=== PATIENT | male | born 1955 | race Caucasian/White ===

== ENCOUNTER → 2016-08-23 | Outpatient (CLI) | payer BC ==
[~2016-08-23] MED LIST: ALBU17AE23 IH; CHOL400T24 PO; RT-ALBUTEROL SULF 2.5 MG/3 ML PRE-MIX VIAL IH ONE; RT-ALBUTEROL SULF 2.5 MG/3 ML PRE-MIX VIAL ONE
== END ==
LOC: RT 15:15
PROVIDERS: ATTEND Nurse Practitioner Family
DX: R06.00 Dyspnea, unspecified (principal)
CPT/HCPCS: 94060; 94640; 94726; 94729

== ENCOUNTER 2017-02-03 05:37 | Outpatient (CLI) | payer BC ==
[~2017-02-03] VITALS: Ht 175.3 cm; Wt 90.7 kg
[~2017-02-03 05:37] MED LIST changes: -RT-ALBUTEROL SULF 2.5 MG/3 ML PRE-MIX VIAL IH ONE; -RT-ALBUTEROL SULF 2.5 MG/3 ML PRE-MIX VIAL ONE
[2017-02-03] MEDS ORDERED: OMEP20TA7 PO (15:45)
[2017-02-03] MEDS ORDERED: MONT10TA24 PO (15:45)
[2017-02-03] MEDS ORDERED: RT-ALBUINH IH (15:45)
[2017-02-03] MEDS ORDERED: PRAV10TA PO (15:45)
== END 2017-02-03 15:47 ==
LOC: PREOP 05:37
PROVIDERS: ATTEND Surgery
DX: Z01.818 Encounter for other preprocedural examination (principal); K57.92 Diverticulitis of intestine, part unspecified, without perforation or abscess without bleeding

== ENCOUNTER 2017-02-10 07:54 | Day surgery (SDC) | payer BC ==
[~2017-02-10] VITALS: Ht 175.3 cm; Wt 90.7 kg
[~2017-02-10 07:54] MED LIST changes: +MONT10TA24 PO; +OMEP20TA7 PO; +PRAV10TA PO; +RT-ALBUINH IH
--- OUTSIDE RECORDS SUMMARY | 2017-02-10 08:06 | XMS REPORT | Continuity of Care Document ---
Author Author [facility] Organization [facility] Address Unknown Phone Unavailable Allergies Active Description Code Type Severity Reaction Onset Reported/Identified Relationship to Patient Clinical Status Yes No Known Drug Allergies [id number] Drug Allergy Unknown N/ A 01/02/2011 Medications Problems Date Dx Coded Attending Type Code Diagnosis Diagnosed By 01/02/2011 Ot 886.0 AMPUTATION FINGER 01/02/2011 Ot 959.5 FINGER INJURY NOS 01/02/2011 Ot E000.8 OTHER EXTERNAL CAUSE STATUS 01/02/2011 Ot E849.0 ACCIDENT IN HOME 01/02/2011 Ot E918 CAUGHT BETWEEN OBJECTS 06/07/2014 Ot 493.90 08/21/2014 FREDERICK DEWITT DO Ot 493.90 08/21/2014 FREDERICK DEWITT DO Ot 518.0 08/21/2014 FREDERICK DEWITT DO Ot 786.09 08/23/2014 FREDERICK DEWITT DO Ot 493.90 09/11/2014 Ot 724.2 09/11/2014 Ot 786.50 09/11/2014 Ot 553.1 09/11/2014 Ot V72.63 09/11/2014 Ot V74.8 09/11/2014 Ot 553.1 09/11/2014 Ot 553.21 09/11/2014 Ot 493.90 09/11/2014 FREDERICK DEWITT DO Ot 493.90 09/11/2014 FREDERICK DEWITT DO Ot 493.90 09/11/2014 FREDERICK DEWITT DO Ot 518.0 09/11/2014 FREDERICK DEWITT DO Ot 786.09 07/21/2015 Ot 553.1 UMBILICAL HERNIA 07/21/2015 Ot V72.63 PRE-PROCEDURAL LABORATORY EXAMINATION 07/21/2015 Ot V74.8 SCREEN-BACTERIAL DIS NEC 07/21/2015 Ot 553.1 UMBILICAL HERNIA 07/21/2015 Ot 553.21 INCISIONAL HERNIA 07/21/2015 Ot 493.90 ASTHMA, UNSPECIFIED 07/21/2015 FREDERICK DEWITT DO Ot 493.90 ASTHMA, UNSPECIFIED 07/21/2015 FREDERICK DEWITT DO Ot 493.90 ASTHMA, UNSPECIFIED 07/21/2015 FREDERICK DEWITT DO Ot 518.0 PULMONARY COLLAPSE 07/21/2015 FREDERICK DEWITT DO Ot 786.09 RESPIRATORY ABNORM NEC 07/22/2015 FYA FRANCE APRN Ot J40 BRONCHITIS, NOT SPECIFIED ACUTE OR CH 07/22/2015 FAY FRANCE APRN Ot J98.11 ATELECTASIS 07/22/2015 FAY FRANCE APRN Ot R06.00 DYSPNEA, UNSPECIFIED 08/06/2015 FAY FRANCE APRN Ot J40 BRONCHITIS, NOT SPECIFIED ACUTE OR CH 08/06/2015 FAY FRANCE APRN Ot J98.11 ATELECTASIS 08/06/2015 FAY FRANCE APRN Ot R06.00 DYSPNEA, UNSPECIFIED 08/23/2016 Ot 493.90 ASTHMA, UNSPECIFIED 08/23/2016 FREDERICK DEWITT DO Ot 493.90 ASTHMA, UNSPECIFIED 08/23/2016 FREDERICK DEWITT DO Ot 493.90 ASTHMA, UNSPECIFIED 08/23/2016 FREDERICK DEWITT DO Ot 518.0 PULMONARY COLLAPSE 08/23/2016 FREDERICK DEWITT DO Ot 786.09 RESPIRATORY ABNORM NEC 08/23/2016 FAY FRANCE APRN Ot J40 BRONCHITIS, NOT SPECIFIED ACUTE OR CH 08/23/2016 FAY FRANCE APRN Ot J98.11 ATELECTASIS 08/23/2016 FAY FRANCE APRN Ot R06.00 DYSPNEA, UNSPECIFIED 09/01/2016 FAY FRANCE APRN Ot R06.00 DYSPNEA, UNSPECIFIED 09/03/2016 FAY FRANCE APRN Ot R06.00 DYSPNEA, UNSPECIFIED 09/08/2016 FAY FRANCE APRN Ot R06.00 DYSPNEA, UNSPECIFIED 01/14/2017 MILAGRO MASTERSON DO Ot K40.20 BI INGUINAL HERNIA, W/O OBST OR GANGRENE 01/14/2017 MILAGRO MASTERSON DO Ot K57.30 DVRTCLOS OF LG INT W/O PERFORATION OR AB 01/14/2017 MILAGRO MASTERSON DO Ot K76.0 FATTY (CHANGE OF) LIVER, NOT ELSEWHERE C 01/14/2017 MILAGRO MASTERSON DO Ot K80.20 CALCULUS OF GALLBLADDER W/O CHOLECYSTITI 01/14/2017 MILAGRO MASTERSON DO Ot N40.0 BENIGN PROSTATIC HYPERPLASIA WITHOUT LOW 01/31/2017 MILAGRO MASTERSON DO Ot K40.20 BI INGUINAL HERNIA, W/O OBST OR GANGRENE 01/31/2017 MILAGRO MASTERSON DO Ot K57.30 DVRTCLOS OF LG INT W/O PERFORATION OR AB 01/31/2017 MILAGRO MASTERSON DO Ot K76.0 FATTY (CHANGE OF) LIVER, NOT ELSEWHERE C 01/31/2017 MILAGRO MASTERSON DO Ot K80.20 CALCULUS OF GALLBLADDER W/O CHOLECYSTITI 01/31/2017 MILAGRO MASTERSON DO Ot N40.0 BENIGN PROSTATIC HYPERPLASIA WITHOUT LOW 02/04/2017 JOE GONZALEZ, IRASEMA Alexander Ot K57.92 DVTRCLI OF INTEST, PART UNSP, W/O PERF O 02/04/2017 JOE GONZALEZ, IRASEMA Alexander Ot Z01.818 ENCOUNTER FOR OTHER PREPROCEDURAL EXAMIN Procedures Results Encounters ACCT No. Visit Date/Time Discharge Status Pt. Type Provider Facility Loc./Unit Complaint [id number] 02/03/2017 05:37:00 2016 15:47:00 DIS Outpatient IRASEMA DIAZ MD [facility] PREOP COLONOSCOPY [id number] 01/13/2017 11:52:00 2016 23:59:59 CLS Outpatient MILAGRO MASTERSON DO [facility] RAD LLQ ABDOMINAL PAIN [id number] 08/23/2016 15:15:00 2016 23:59:59 CLS Outpatient FAY FRANCE APRN [facility] RT DYSPNEA R06.00 [id number] 07/21/2015 10:14:00 2015 23:59:59 CLS Outpatient FAY FRANCE APRN [facility] RAD BRONCHITIS,DYSPNEA,ASTHMA [id number] 07/30/2014 13:31:00 2014 23:59:59 CLS Outpatient FREDERICK DEWITT DO [facility] RAD DYSPNEA,ATELECTASIS,ASTHMA [id number] 07/18/2014 12:35:00 2014 23:59:59 CLS Outpatient FREDERICK DEWITT DO [facility] RAD ASTHMA [id number] 02/23/2017 08:00:00 PEN Preadmit JOE [facility]ALE[facility] G[facility]ONES, BILATERAL INGUINAL HERNIAS [id number] 02/10/2017 10:15:00 PEN Preadmit JOE GONZALEZ, IRASEMA Alexander [facility] ENDO DIVERTICULITIS/ABNORMAL CT [id number] 06/07/2014 16:35:00 Document Registration [id number] 01/19/2011 05:37:00 Document Registration [id number] 01/14/2011 14:06:00 Document Registration [id number] 01/02/2011 12:23:00 Document Registration [id number] 04/11/2009 08:13:00 Document Registration
[2017-02-10 08:10] VITALS: BP 106/76
[2017-02-10] MEDS ORDERED: NS IV 500 ML 500 ML IV PRN (08:10)
--- NOTE | 2017-02-10 08:40 | Conscious Sedation/ASA ---
Conscious Sedation Pre-Proced Time Reviewed: 08:40 ASA Class: 2 Airway Mallampati Classification: ([place] appropriate class) I. II. III, IV Lungs Heart ASA score ASA 1: a normal healthy patient ASA 2: a patient with a mild systemic disease (mid diabetes, controlled hypertension, obesity ASA 3: a patient with a severe systemic disease that limits activity (angina , COPD, prior Myocardial infarction) ASA 4: a patient with an incapacitating disease that is a constant threat to life (CHF, renal failure) ASA 5: a moribund patient not expected to survive 24 hrs. (ruptured aneurysm) ASA 6: a declared brain patient whose organs are being harvested. For emergent operations, add the letter E after the classification Grade 1 Sedation Plan: Discussed options with patient/fam Note The patient is an appropriate candidate to undergo the planned procedure, sedation, and anesthesia. The patient immediately re-assessed prior to indication. IRASEMA DIAZ MD Feb 10, 2017 8:40 am
[2017-02-10 08:45] VITALS: BP 99/62
[2017-02-10] MEDS ORDERED: MIDAZOLAM 2 MG/2 ML (VERSED) VIAL ONE ×3 (09:01)
[2017-02-10] MEDS ORDERED: fentaNYL INJECTION 100 MCG/2 ML AMP ONE (09:01)
[2017-02-10] MEDS: MIDAZOLAM 2 MG/2 ML (VERSED) VIAL IVP PRN ×2 (09:12→09:15)
[2017-02-10] MEDS: fentaNYL INJECTION 100 MCG/2 ML AMP IVP PRN ×2 (09:13→09:16)
[2017-02-10 09:20] VITALS: BP 127/69
--- NOTE | 2017-02-10 09:33 | Endo Procedure Record ---
Endo Procedure Report Date of Procedure Feb 10, 2017 Surgeon (s) IRASEMA DIAZ MD Post Procedure/Op Diagnosis very few sigmoid diverticula. Procedure Performed colonoscopy to cecum Description of Procedure Anesthesia Type: Conscious Sedation Specimen(s) collected/removed none Description of the Procedure Indication for procedure: This gentleman came in for colonoscopy to evaluate left lower quadrant pain with the finding of diverticulosis on CT scan. Informed consent was obtained after reviewing the procedure in detail. Description of procedure: He was placed in left lateral decubitus position and his vital signs were monitored. Conscious sedation was achieved using Versed and fentanyl. Digital rectal examination was unremarkable. The colonoscope was then introduced in the rectum and advanced all the way up to the cecum. The scope was then withdrawn slowly and the mucosa examined in a systematic fashion. The quality of bowel preparation was excellent Findings: Very few sigmoid diverticula without any inflammation No polyps were found He tolerated the procedure well and was taken back to the nursing area in a stable condition. Impression: Left lower quadrant pain.complicated sigmoid diverticulosis. Note: This gentleman has symptomatic gallstones and small inguinal hernia. He is scheduled to undergo repair using minimally invasive technique later this month. Copies To: MILAGRO MASTERSON XAVIER M MD Feb 10, 2017 9:33 am
--- NOTE | 2017-02-10 09:34 | Discharge Inst-Simple/Standard ---
Discharge Inst-Standard Discharge Medications New, Converted or Re-Newed RX: Other Patient Instructions/Follow Up Plan of Care/Instructions/FU: to return on February 23 for surgery Activity as Tolerated: Yes Discharge Diet: No Restrictions IRASEMA DIAZ MD Feb 10, 2017 9:34 am
[2017-02-10 09:50] VITALS: BP 106/72
[2017-02-10 10:15] VITALS: BP 126/94
[2017-02-10 10:21] VITALS: BP 126/94
== END 2017-02-10 10:24 | disposition home or self-care (01) ==
LOC: ENDO 07:54
PROVIDERS: ATTEND Surgery
DX: K57.30 Diverticulosis of large intestine without perforation or abscess without bleeding (principal); J45.909 Unspecified asthma, uncomplicated; Z79.899 Other long term (current) drug therapy

== ENCOUNTER 2017-02-10 08:20 | Outpatient (CLI) | payer BC ==
[~2017-02-10] VITALS: Ht 175.3 cm; Wt 90.7 kg
== END 2017-02-10 09:00 | disposition home or self-care (01) ==
LOC: PREOP 08:20
PROVIDERS: ATTEND Surgery
DX: Z01.818 Encounter for other preprocedural examination (principal); Z11.2 Encounter for screening for other bacterial diseases; K80.20 Calculus of gallbladder without cholecystitis without obstruction; K40.20 Bilateral inguinal hernia, without obstruction or gangrene, not specified as recurrent
CPT/HCPCS: 87081

== ENCOUNTER 2017-02-23 06:15 | Day surgery (SDC) | payer BC ==
[~2017-02-23] VITALS: Ht 175.3 cm; Wt 90.7 kg
[2017-02-23 06:15] VITALS: BP 127/83
--- OUTSIDE RECORDS SUMMARY | 2017-02-23 06:18 | XMS REPORT | Continuity of Care Document ---
Author Author [facility] Organization [facility] Address Unknown Phone Unavailable Allergies Active Description Code Type Severity Reaction Onset Reported/Identified Relationship to Patient Clinical Status Yes No Known Drug Allergies [id number] Drug Allergy Unknown N/A 01/02/2011 Medications There is no data. Problems Date Dx Coded Attending Type Code [...] Ot 553.1 UMBILICAL HERNIA 07/21/2015 Ot V72.63 PRE- PROCEDURAL LABORATORY EXAMINATION 07/21/2015 Ot V74.8 SCREEN- BACTERIAL DIS NEC 07/21/2015 Ot 553.1 UMBILICAL HERNIA 07/21/2015 Ot 553.21 INCISIONAL HERNIA 07/21/2015 Ot 493.90 ASTHMA, UNSPECIFIED 07/21/2015 ESDRAS FREDERICK Alexander Ot 493.90 ASTHMA, UNSPECIFIED 07/21/2015 ESDRAS BOWEN FREDERICK M Ot 493.90 ASTHMA, UNSPECIFIED 07/21/2015 ESDRAS BOWEN FREDERICK Alexander Ot 518.0 PULMONARY COLLAPSE 07/21/2015 ESDRAS BOWEN FREDERICK Benjamin Ot 786.09 RESPIRATORY ABNORM NEC 07/22/2015 FAY FRANCE APRN Ot J40 BRONCHITIS, NOT SPECIFIED ACUTE OR CH 07/22/2015 FAY FRANCE APRN Ot J98.11 ATELECTASIS 07/22/2015 FAY FRANCE APRN Ot R06.00 DYSPNEA, UNSPECIFIED 08/06/2015 FAY FRANCE APRN Ot J40 BRONCHITIS, NOT SPECIFIED ACUTE OR CH 08/06/2015 FAY FRANCE APRN Ot J98.11 ATELECTASIS 08/06/2015 FAY FRANCE APRN Ot R06.00 DYSPNEA, UNSPECIFIED 08/23/2016 Ot 493.90 ASTHMA, UNSPECIFIED 08/23/2016 ESDRAS BOWEN FREDERICK Benjamin Ot 493.90 ASTHMA, UNSPECIFIED 08/23/2016 ESDRAS BOWEN FREDERICK Benjamin Ot 493.90 ASTHMA, UNSPECIFIED 08/23/2016 ESDRAS BOWEN FREDERICK Benjamin Ot 518.0 PULMONARY COLLAPSE 08/23/2016 ESDRAS BOWEN FREDERICK Benjamin Ot 786.09 RESPIRATORY ABNORM NEC 08/23/2016 FAY [...] INTEST, PART UNSP, W/O PERF O 02/04/2017 IRASEMA DIAZ MD Ot Z01.818 ENCOUNTER FOR OTHER PREPROCEDURAL EXAMIN 02/09/2017 IRASEMA DIAZ MD Ot K57.92 DVTRCLI OF INTEST, PART UNSP, W/O PERF O 02/09/2017 IRASEMA DIAZ MD Ot Z01.818 ENCOUNTER FOR OTHER PREPROCEDURAL EXAMIN 02/16/2017 IRASEMA DIAZ MD Ot J45.909 UNSPECIFIED ASTHMA, UNCOMPLICATED 02/16/2017 IRASEMA DIAZ MD Ot K57.30 DVRTCLOS OF LG INT W/O PERFORATION OR AB 02/16/2017 IRASEMA DIAZ MD Ot Z79.899 OTHER [employer]PERINTENDENT (CURRENT) DRUG THERAPY Procedures There is no data. Results Test Result Range Methicillin resistant Staphylococcus aureus (MRSA) screening culture - 08:45 Methicillin resistant Staphylococcus aureus (MRSA) screening culture NEG NRG Encounters ACCT No. Visit Date/Time Discharge Status Pt. Type Provider Facility Loc./Unit Complaint [id number] 02/10/2017 08:20:00 02/10/2017 23:59:59 CLS Outpatient IRASEMA DIAZ MD [facility] PREOP GALLSTONES, BILATERAL INGUINAL HERNIAS [id number] 02/10/2017 07:54:00 02/10/2017 10:24:00 DIS Outpatient IRASEMA DIAZ MD [facility] ENDO DIVERTICULITIS/ ABNORMAL CT [id number] 02/03/2017 05:37:00 02/03/2017 15:47:00 DIS Outpatient IRASEMA DIAZ MD [facility] PREOP COLONOSCOPY [id number] 01/13/2017 11:52:00 01/13/2017 23:59:59 CLS Outpatient MILAGRO MASTERSON DO [facility] RAD LLQ ABDOMINAL PAIN [id number] 08/23/2016 15:15:00 08/23/2016 23:59:59 CLS Outpatient FAY FRANCE APRN [facility] RT DYSPNEA R06.00 [id number] 07/21/2015 10:14:00 07/21/2015 23:59:59 CLS Outpatient FAY FRANCE APRN [facility] RAD BRONCHITIS,DYSPNEA, ASTHMA [id number] 07/30/2014 13:31:00 07/30/2014 23:59:59 CLS Outpatient FREDERICK DEWITT DO [facility] RAD DYSPNEA,ATELECTASIS, ASTHMA [id number] 07/18/2014 12:35:00 07/18/2014 23:59:59 CLS Outpatient FREDERICK DEWITT DO [facility] RAD ASTHMA [id number] 02/23/2017 06:15:00 ACT Outpatient IRASEMA DIAZ MD [facility] SDC GALLSTONES, BILATERAL INGUINAL HERNIAS [id number] 06/07/2014 16:35:00 Document Registration [id number] 01/19/2011 05:37:00 Document Registration [id number] 01/14/2011 14:06:00 Document Registration [id number] 01/02/2011 12:23:00 Document Registration [id number] 04/11/2009 08:13:00 Document Registration
[2017-02-23] MEDS: LACTATED RINGERS 1,000 ML IV PRN ×2 (06:35→08:20)
[2017-02-23] MEDS ORDERED: BUP/EPI 0.5% 1:200,000 (MARCAINE) 10ML VIAL IJ ONE (06:59)
[2017-02-23] MEDS ORDERED: ceFAZolin 2 GM/NS 50 ML IV ONE (07:00)
[2017-02-23] MEDS ORDERED: metroNIDAZOLE 500MG/100ML IVPB 100 ML IV ONE (07:00)
[2017-02-23] MEDS ORDERED: ceFAZolin INJECTION 1,000 MG in NS (IVPB) 50 ML IV ONE (07:00)
[2017-02-23] MEDS ORDERED: ROCURONIUM 50 MG/5 ML (ZEMURON) VIAL IV ONE ×2 (07:19→08:53)
[2017-02-23] MEDS ORDERED: GLYCOPYRROLATE 0.2 MG/ML (ROBINUL) 2 ML VIAL ONE (07:19)
[2017-02-23] MEDS ORDERED: MIDAZOLAM 2 MG/2 ML (VERSED) VIAL ONE (07:19)
[2017-02-23] MEDS ORDERED: LIDOCAINE PF 2% 5 ML (XYLOCAINE) VIAL ONE (07:19)
[2017-02-23] MEDS ORDERED: proPOfol 200 MG/20 ML (DIPRIVAN) VIAL IV ONE (07:19)
[2017-02-23] MEDS ORDERED: fentaNYL INJECTION 250 MCG/5 ML AMP ONE (07:19)
[2017-02-23] MEDS ORDERED: NEOSTIGMINE (BLOXIVERZ ) 1 MG/1ML 10 ML VIAL ONE (07:19)
[2017-02-23] MEDS ORDERED: ONDANSETRON 4 MG/2 ML (SDV) Z0FRAN ONE (07:19)
[2017-02-23] MEDS ORDERED: DEXAMETHASONE 10 MG/ML (DECADRON) 1 ML VIAL ONE (07:19)
[2017-02-23] MEDS ORDERED: SEVOFLURANE (ULTANE) 15 ML INHAL SOLN ONE ×2 (07:19→09:40)
--- NOTE | 2017-02-23 07:38 | Progress Note-Pre Operative ---
Pre-Operative Progress Note H&P Reviewed The H&P was reviewed, patient examined and no changes noted. Date Seen by Provider: Feb 02, 2017 Time Seen by Provider: 15:00 Date H&P Reviewed: Feb 23, 2017 Time H&P Reviewed: 07:37 Pre-Operative Diagnosis: Gallstones. Bilateral, incidental inguinal herniae IRASEMA DIAZ MD Feb 23, 2017 07:38
--- NOTE | 2017-02-23 09:49 | Operative Report ---
Operative Report Date of Procedure/Surgery Feb 23, 2017 Surgeon (s) IRASEMA DIAZ MD [employer] Merchandiser (s): N/A Post-Operative Diagnosis Gallstones only. Normal cholangiogram. No true inguinal hernia Procedure Performed Robotic-assisted cholecystectomy Intraoperative cholangiogram(normal) Description of Procedure Anesthesia Type: General Estimated blood loss (mL): Minimal Specimen(s) collected/removed Gallbladder Description of the Procedure Indication for procedure: Evaluation for abdominal pain included a CT scan revealing gallstones and a dental, asymptomatic bilateral inguinal hernia. He was offered cholecystectomy with cholangiogram using minimally invasive technique, combined with repair of inguinal hernia should they were confirmed on laparoscopy. Informed consent was obtained after reviewing the operative details and complications of wound infection and bile leak Description of procedure: He was placed supine on the operative table and general anesthesia induced using an endotracheal tube. Ancef and Flagyl were administered intravenously as prophylaxis against wound infection. Sequential compression devices were placed around his legs, to minimize the risk of venous thrombosis. A Garza catheter was placed to decompress the bladder during surgery. It was removed at the end of the operation. Robotic-assisted cholecystectomy/cholangiogram: Abdomen is prepared and draped in the usual sterile manner. Due to previous repair of a midline umbilical hernia, I elected to establish pneumoperitoneum using a Veress needle introduced over the left subcostal margin. Intra-abdominal pressure was maintained at 15 mmHg, using carbon dioxide insufflation. A 5 mm trocar was placed and anatomy visualized using the conventional laparoscope. Omentum was adherent to the undersurface of the mesh deeper to the umbilicus. Under direct view, I placed an 8 mm trocar over the left side of the abdomen and took down the adhesions. Subsequently, I was able to place a 12 mm trocar superior to the umbilicus and another 8 mm trocar over the right side of the abdomen; the patient was then turned into reverse Trendelenburg position and the robotic system docked in place. Omentum was adherent to the body of the gallbladder and taken down using cautery. Eventually the fundus was retracted cephalad and infundibulum grasped with Cadiere forceps. Peritoneal overlying Calot's triangle was incised using hook cautery, delineating the cystic duct and artery. Cholangiogram was obtained using taut catheter. It revealed a normal bile duct with no filling defects within it. The contrast flowed freely into the duodenum. The catheter was removed and the cystic duct controlled using ligaclips. Cystic artery was managed in a similar fashion. Cholecystectomy was completed using hook cautery. Minimal spillage of bile happen and therefore the subhepatic space was thoroughly irrigated with saline. Once the gallbladder was placed in an Endo Catch bag, we undocked the robotic system in preparation for positioning for inguinal hernia assessment and the patient. The patient was turned into steep Trendelenburg position and the robotic system docked back in place. Laparoscopic survey was negative for any true inguinal hernia. Therefore the operation was concluded. Once the Endo Catch bag was removed, the fascia over the supraumbilical incision was closed using #1 Vicryl, under direct view, using the Isaiah Bourne device. Skin incisions were closed using 4-0 Vicryl, in a subcuticular fashion. 0.5 percent Marcaine with epinephrine was infiltrated along the incisions, both preemptively and at the conclusion of the operation. He tolerated the procedure well and was taken back to the nursing area in a stable condition Findings of the Procedure See op report Allergies and Home Medications Allergies Coded Allergies: No Known Drug Allergies (Unverified , 01/02/11) Home Medications Albuterol Sulfate 1 Puff Puff, 2 PUFF IH Q4H PRN for WHEEZING, (Reported) 1 PUFF = 90 MCG Montelukast Sodium 10 Mg Tablet, 10 MG PO HS, (Reported) Omeprazole 20 Mg Tablet.dr, 20 MG PO DAILY, (Reported) Pravastatin Sodium 10 Mg Tablet, 10 MG PO HS, (Reported) IRASEMA DIAZ MD Feb 23, 2017 9:49 am
[2017-02-23] MEDS ORDERED: HYDR-3812 PO (09:50)
--- NOTE | 2017-02-23 09:51 | Discharge Inst-Simple/Standard ---
Discharge Inst-Standard Discharge Medications New, Converted or Re-Newed RX: RX on Chart Patient Instructions/Follow Up Plan of Care/Instructions/FU: Band-Aids off in 48 hours. Incentive spirometry Follow-up in 3 weeks. Activity as Tolerated: Yes Discharge Diet: No Restrictions IRASEMA DIAZ MD Feb 23, 2017 9:51 am
[2017-02-23] MEDS ORDERED: morphine INJ 10 MG/ML 1ML (SYR OR VIAL) ONE (10:01)
[2017-02-23] MEDS ORDERED: HYDROmorphone (DILAUDID) 2 MG/ML VIAL ONE (10:01)
[2017-02-23] MEDS ORDERED: fentaNYL INJECTION 100 MCG/2 ML AMP ONE (10:06)
[2017-02-23] MEDS: fentaNYL INJECTION 100 MCG/2 ML AMP IVP PRN ×2 (10:12→10:24)
[2017-02-23] MEDS ORDERED: MEPERIDINE (DEMEROL) INJ 50 MG/ML IVP PRN (10:15)
[2017-02-23] MEDS ORDERED: ONDANSETRON 4 MG/2 ML (SDV) Z0FRAN IVP PRN (10:15)
[2017-02-23 11:00] VITALS: BP 148/86
--- NOTE | 2017-02-23 11:26 | Diagnostic Imaging Report ---
Intraoperative cholangiogram Indication: Abdominal pain. Cholangiogram performed the in surgery during cholecystectomy Fluoroscopy time: 8 seconds Contrast used: HCC Findings: The CBD is normal in caliber. No filling defects seen to suggest a stone. Contrast passage into the duodenum is documented with no evidence of obstruction. Impression: No evidence of CBD stones or obstruction. Dictated by: Dictated on workstation # [id number]
[2017-02-23 11:30] VITALS: BP 143/92
[2017-02-23 12:00] VITALS: BP 140/89
[2017-02-23 14:20] VITALS: BP 140/89
== END 2017-02-23 12:30 | disposition home or self-care (01) ==
LOC: SDC 06:15
PROVIDERS: ATTEND Surgery
DX: K80.20 Calculus of gallbladder without cholecystitis without obstruction (principal); J45.909 Unspecified asthma, uncomplicated; Z79.899 Other long term (current) drug therapy; F17.210 Nicotine dependence, cigarettes, uncomplicated; Z11.2 Encounter for screening for other bacterial diseases

== ENCOUNTER → 2017-08-19 | Outpatient (CLI) | payer BC ==
[~2017-08-19] MED LIST changes: +ACHD5005 PO; +RT-ALBUTEROL SULF 2.5 MG/3 ML PRE-MIX VIAL INH ONE; +RT-ALBUTEROL SULF 2.5 MG/3 ML PRE-MIX VIAL ONE
== END ==
LOC: RT 14:11
PROVIDERS: ATTEND Internal Medicine Critical Care Medicine
DX: R06.00 Dyspnea, unspecified (principal); R06.83 Snoring; G47.9 Sleep disorder, unspecified; E66.9 Obesity, unspecified
CPT/HCPCS: 94060; 94726; 94729

== ENCOUNTER → 2018-03-17 | Outpatient (CLI) | payer BC ==
[~2018-03-17] MED LIST changes: -RT-ALBUTEROL SULF 2.5 MG/3 ML PRE-MIX VIAL INH ONE; -RT-ALBUTEROL SULF 2.5 MG/3 ML PRE-MIX VIAL ONE
== END ==
LOC: CARD 07:58
PROVIDERS: ATTEND Internal Medicine
DX: R00.2 Palpitations (principal); I10 Essential (primary) hypertension
CPT/HCPCS: 93017

== ENCOUNTER 2020-03-30 04:29 | Day surgery (SDC) | payer MEDICARE, OTHER ==
[~2020-03-30] VITALS: Ht 175.3 cm; Wt 92.8 kg
[~2020-03-30 04:29] MED LIST changes: -MONT10TA24 PO; +MONT10TA97 PO
[2020-03-30] MEDS ORDERED: ASPIRIN 81 MG CHEW (CHILDREN'S ASA) ONE (04:45)
[2020-03-30] MEDS ORDERED: morphine INJ 10 MG/ML 1ML (SYR OR VIAL) IVP STA (04:47)
[2020-03-30] MEDS ORDERED: LACTATED RINGERS 1,000 ML IV ONE ×2 (04:52→05:00)
[2020-03-30 04:54] LABS: BASOPHILS # (AUTO) 0.1 10^3/uL (0.0-0.1); BASOPHILS % (AUTO) 1 % (0-10); EOSINOPHILS # (AUTO) 0.1 10^3/uL (0.0-0.3); EOSINOPHILS % (AUTO) 2 % (0-10); HEMATOCRIT 46 % (40-54); HEMOGLOBIN 15.2 g/dL (13.3-17.7); LYMPHOCYTES # (AUTO) 2.4 10^3/uL (1.0-4.0); LYMPHOCYTES % (AUTO) 34 % (12-44); MEAN CORPUSCULAR HEMOGLOBIN 30 pg (25-34); MEAN CORPUSCULAR HGB CONC 33 g/dL (32-36); MEAN CORPUSCULAR VOLUME 90 fL (80-99); MEAN PLATELET VOLUME 10.2 fL (9.0-12.2); MONOCYTES # (AUTO) 0.6 10^3/uL (0.0-1.0); MONOCYTES % (AUTO) 8 % (0-12); NEUTROPHILS # (AUTO) 3.8 10^3/uL (1.8-7.8); NEUTROPHILS % (AUTO) 55 % (42-75); PLATELET COUNT 272 10^3/uL (130-400)
[2020-03-30] MEDS ORDERED: ONDANSETRON 4 MG/2 ML (SDV) Z0FRAN ONE (04:59)
[2020-03-30] MEDS ORDERED: ASPIRIN 81 MG CHEW (CHILDREN'S ASA) PO ONE (05:00)
[2020-03-30 05:07] LABS: ALBUMIN 3.7 GM/DL (3.2-4.5); CHLORIDE 106 MMOL/L (98-107); INR 0.9 (0.8-1.4); POTASSIUM 3.9 MMOL/L (3.6-5.0); PROTHROMBIN TIME PATIENT 12.8 SEC (12.2-14.7)
[2020-03-30] MEDS ORDERED: HEParin 1000 UNIT/ML (10ML VIAL) FOR BOLUS ONE (05:07)
[2020-03-30] MEDS ORDERED: CLOPIDOGREL 300 MG (PLAVIX) TABLET PO ONE ×3 (05:07→06:26)
[2020-03-30 05:08] LABS: SODIUM 139 MMOL/L (135-145)
[2020-03-30 05:09] LABS: CALCIUM 8.3 MG/DL (8.5-10.1)
--- NOTE | 2020-03-30 05:09 | ED Chest Pain ---
General Chief Complaint: Chest Pain Stated Complaint: CHEST PAIN / LEFT ARM NUMBNESS Nursing Triage Note: Pt to ED 3 w c/o chest pain with radiation and numbness to left arm beginning approx 0230 Nursing Sepsis Screen: No Definite Risk Source: patient (CAROLYN SORIANO STUDENT) History of Present Illness Date Seen by Provider: Mar 30, 2020 Time Seen by Provider: 04:35 Initial Comments This is a 64 year old male presenting to the Emergency Department via ambulation for a chief complaint of chest pain that began at 2:30AM. He didn't feel good initially but it progressed. The patient complains of burning left sided chest pain that radiates to the left arm pain and sweating. He denies being short of breath or having nausea. (CAROLYN SORIANO) Allergies and Home Medications Allergies Coded Allergies: No Known Drug Allergies (Unverified , 01/02/11) Home Medications Albuterol Sulfate 1 Puff Puff, 2 PUFF IH Q4H PRN for WHEEZING, (Reported) 1 PUFF = 90 MCG Hydrocodone Bit/Acetaminophen 1 Each Tablet, 1-2 TAB PO 4-6HR PRN for PAIN Prescribed by: IRASEAM DIAZ on 02/23/17 0950 Montelukast Sodium 10 Mg Tablet, 10 MG PO HS, (Reported) Omeprazole 20 Mg Tablet.dr, 20 MG PO DAILY, (Reported) Pravastatin Sodium 10 Mg Tablet, 10 MG PO HS, (Reported) Patient Home Medication List Home Medication List Reviewed: Yes (JAYSON BENNETT MD) Review of Systems Review of Systems Constitutional: diaphoresis EENTM: No Symptoms Reported Respiratory: Shortness of Air Cardiovascular: Chest Pain Gastrointestinal: No Symptoms Reported Genitourinary: No Symptoms Reported Musculoskeletal: no symptoms reported Skin: no symptoms reported Psychiatric/Neurological: No Symptoms Reported Endocrine: Excessive Sweating Hematologic/Lymphatic: No Symptoms Reported (CAROLYN SORIANO STUDENT) Skin: other (Diaphoresis) (JAYSON BENNETT MD) Past Usonvtn-Xyubyh-Bxcczm Hx Past Med/Social Hx: Reviewed and Corrections made (JAYSON BENNETT MD) Patient Social History Recent Infectious Disease Expo: No Recent Hopitalizations: No (CAROLYN SORIANO) Immunizations Up To Date Tetanus Booster (TDap): Unknown PED Vaccines UTD: No Date of Influenza Vaccine: Jan 03, 2017 (CAROLYN SORIANO Fisgo STUDENT) Seasonal Allergies Seasonal Allergies: Yes (CAROLYN SORIANO Fisgo STUDENT) Past Medical History Asthma, COPD Hypertension Reproductive Disorders: No Sexually Transmitted Disease: No Diverticulosis (CAROLYN SORIANO Fisgo STUDENT) Surgeries: Yes Abdominal, Gallbladder Respiratory: Yes Asthma, Pneumonia Cardiac: Yes High Cholesterol, Hypertension Neurological: No Genitourinary: No Gastrointestinal: Yes Diverticulosis, Gall Bladder Disease Endocrine: No Cancer: No Psychosocial: No Integumentary: No (JAYSON BENNETT MD) Physical Exam Vital Signs Vital Signs - First Documented 03/30/20 04:53 O2 Flow Rate 2.00 FiO2 95 (JAYSON BENNETT MD) Vital Signs Capillary Refill : Less Than 3 Seconds (CAROLYN SORIANO [employer] STUDENT) Height, Weight, BMI Height: 5'9.00" Weight: 200lbs. 0.0oz. 90.897487op; 30.00 BMI Method: General Appearance: Moderate Distress Skin: Damp (CAROLYN SORIANO Fisgo STUDENT) General Appearance: WD/WN, Other (Lethargic) HEENT: PERRL/EOMI, Normal ENT Inspection Neck: Normal Inspection Respiratory: Lungs Clear, Normal Breath Sounds, No Accessory Muscle Use, No Respiratory Distress Cardiovascular: No Edema, No Murmur, Bradycardia Gastrointestinal: Non Tender, Soft; No Distended Extremity: Normal Inspection, Non Tender, No Pedal Edema Neurologic/Psychiatric: Alert, Oriented x3, No Motor/Sensory Deficits, Normal Mood/Affect, biomedical technician II-XII Norm as Tested Skin: Normal Color, Warm/Dry (JAYSON BENNETT MD) Progress/Results/Core Measures Results/Orders Lab Results Laboratory Tests Test 03/30/20 04:44 Range/Units White Blood Count 7.0 4.3-11.0 10^3/uL Red Blood Count 5.04 4.30-5.52 10^6/uL Hemoglobin 15.2 13.3-17.7 g/dL Hematocrit 46 40-54 % Mean Corpuscular Volume 90 80-99 fL Mean Corpuscular Hemoglobin 30 25-34 pg Mean Corpuscular Hemoglobin Concent 33 32-36 g/dL Red Cell Distribution Width 12.4 10.0-14.5 % Platelet Count 272 130-400 10^3/uL Mean Platelet Volume 10.2 9.0-12.2 fL Immature Granulocyte % (Auto) 0 % Neutrophils (%) (Auto) 55 42-75 % Lymphocytes (%) (Auto) 34 12-44 % Monocytes (%) (Auto) 8 0-12 % Eosinophils (%) (Auto) 2 0-10 % Basophils (%) (Auto) 1 0-10 % Neutrophils # (Auto) 3.8 1.8-7.8 10^3/uL Lymphocytes # (Auto) 2.4 1.0-4.0 10^3/uL Monocytes # (Auto) 0.6 0.0-1.0 10^3/uL Eosinophils # (Auto) 0.1 0.0-0.3 10^3/uL Basophils # (Auto) 0.1 0.0-0.1 10^3/uL Immature Granulocyte # (Auto) 0.0 0.0-0.1 10^3/uL Prothrombin Time 12.8 12.2-14.7 SEC INR Comment 0.9 0.8-1.4 Activated Partial Thromboplast Time 24 24-35 SEC Sodium Level 139 135-145 MMOL/L Potassium Level 3.9 3.6-5.0 MMOL/L Chloride Level 106 98-107 MMOL/L Carbon Dioxide Level 24 21-32 MMOL/L Anion Gap 9 5-14 MMOL/L Blood Urea Nitrogen 17 7-18 MG/DL Creatinine 0.93 0.60-1.30 MG/DL Estimat Glomerular Filtration Rate > 60 BUN/Creatinine Ratio 18 Glucose Level 172 H 70-105 MG/DL Calcium Level 8.3 L 8.5-10.1 MG/DL Corrected Calcium 8.5 8.5-10.1 MG/DL Magnesium Level 2.1 1.6-2.4 MG/DL Total Bilirubin 0.7 0.1-1.0 MG/DL Aspartate Amino Transf (AST/SGOT) 24 5-34 U/L Alanine Aminotransferase (ALT/SGPT) 38 0-55 U/L Alkaline Phosphatase 50 40-136 U/L Myoglobin 88.0 10.0-92.0 NG/ML Troponin I 0.140 H <0.028 NG/ML Total Protein 6.2 L 6.4-8.2 GM/DL Albumin 3.7 3.2-4.5 GM/DL Triglycerides Level 111 <150 MG/DL Cholesterol Level 165 < 200 MG/DL LDL Cholesterol Direct 121 1-129 MG/DL VLDL Cholesterol 22 5-40 MG/DL HDL Cholesterol 39 L 40-60 MG/DL (JAYSON BENNETT MD) My Orders Orders - JAYSON BENNETT MD Cbc With Automated Diff (03/30/20 04:47) Magnesium (03/30/20 04:47) Ekg Tracing (03/30/20 04:47) Comprehensive Metabolic Panel (03/30/20 04:47) Myoglobin Serum (03/30/20 04:47) Protime With Inr (03/30/20 04:47) Partial Thromboplastin Time (03/30/20 04:47) O2 (03/30/20 04:47) Monitor-Rhythm Ecg Trace Only (03/30/20 04:47) Lipid Panel (03/31/20 06:00) Ed Iv/Invasive Line Start (03/30/20 04:47) Troponin I (03/30/20 04:47) Aspirin Chewable Tablet (Baby Aspirin Ch (03/30/20 05:00) Morphine Injection (Morphine Injection (03/30/20 04:47) Aspirin Chewable Tablet (Baby Aspirin Ch (03/30/20 04:45) Lactated Ringers (Lr 1000 Ml Iv Solution (03/30/20 05:00) Lactated Ringers (Lr 1000 Ml Iv Solution (03/30/20 04:52) Ondansetron Injection (Zofran Injectio (03/30/20 05:15) Ondansetron Injection (Zofran Injectio (03/30/20 04:59) Clopidogrel Tablet (Plavix Tablet) (03/30/20 05:15) Heparin (Bolus Per Protocol) (Heparin (B (03/30/20 05:10) Heparin (Bolus Per Protocol) (Heparin (B (03/30/20 05:07) Clopidogrel Tablet (Plavix Tablet) (03/30/20 05:07) (JAYSON BENNETT MD) Medications Given in ED (JAYSON BENNETT MD) Vital Signs/I&O 03/30/20 03/30/20 03/30/20 03/30/20 04:30 04:30 04:53 05:29 Temp 34.7 34.7 Pulse 49 47 Resp 16 16 B/P (MAP) 106/63 (77) 106/75 (77) Pulse Ox 95 95 97 O2 Delivery Room Air Room Air Nasal Cannula Nasal Cannula O2 Flow Rate 2.00 2.00 FiO2 95 (JAYSON BENNETT MD) Blood Pressure Mean: 77 Progress Progress Note : Time: 05:00 Progress Note - EKG revealed STEMI. labor arbitrator has been activated. Pt was asked about his code status and stated he would like to be resuscitated and intubated. (CAROLYN SORIANO STUDENT) Progress Note : Progress Note Patient received aspirin 324 mg, Plavix 300 mg, and heparin 5000 units IV. EKG demonstrated ST elevation. Dr. Collins was promptly called and Database Administration Manager was activated. Patient remained in the ER in stable but guarded condition until taken to the Database Administration Manager. was updated on his status. (JAYSON BENNETT MD) Initial ECG Impression Date: Mar 30, 2020 Initial ECG Impression Time: 04:36 Initial ECG Rhythm: Normal Sinus Initial ECG Impression: Acute PR Comment - the EKG reveals normal sinus rhythm and elevations in leads II, III, and aVF. No abnormal intervals or axis deviations. (CAROLYN SORIANO) Departure Communication (Admissions) Time/Spoke to Admitting Phy: 04:45 Dr. Allen (JAYSON BENNETT MD) Impression Primary Impression: ST elevation myocardial infarction (STEMI) Qualified Codes: I21.3 - ST elevation (STEMI) myocardial infarction of unspecified site Additional Impression: Bradycardia Disposition: ADMITTED INPATIENT Condition: Critical Admissions Decision to Admit Reason: Admit from ER (General) Decision to Admit/Date: Mar 30, 2020 Time/Decision to Admit Time: 04:36 (JAYSON BENNETT MD) Departure-Patient Inst. Referrals: MILAGRO MASTERSON DO (PCP/Family) Primary Care Physician Medical Student Attestation and Attending Note: I have personally interviewed and examined this patient along with Carolyn Soriano, MS 3. I have reviewed student documentation including history, physical, and assessments. I agree with the documentation except where otherwise noted. (JAYSON BENNETT MD) Copy Copies To 1: MILAGRO MASTERSON DO Copies To 2: PETER ALLEN MD FACP FACC CCDS CAROLYN SORIANO [facility] STUDENT Mar 30, 2020 05:09 JAYSON BENNETT MD Mar 30, 2020 06:31
[2020-03-30 05:10] LABS: GLUCOSE 172 MG/DL (70-105); TOTAL PROTEIN 6.2 GM/DL (6.4-8.2)
[2020-03-30] MEDS ORDERED: HEParin 1000 UNIT/ML (10ML VIAL) FOR BOLUS IV ONE (05:10)
[2020-03-30 05:11] LABS: CARBON DIOXIDE 24 MMOL/L (21-32)
[2020-03-30 05:12] LABS: BILIRUBIN,TOTAL 0.7 MG/DL (0.1-1.0)
[2020-03-30 05:13] LABS: ALKALINE PHOSPHATASE 50 U/L (40-136)
[2020-03-30 05:14] LABS: CREATININE SERUM 0.93 MG/DL (0.60-1.30); GFR ESTIMATED > 60
[2020-03-30 05:15] LABS: BUN/CREATININE RATIO 18
[2020-03-30] MEDS ORDERED: ONDANSETRON 4 MG/2 ML (SDV) Z0FRAN IVP ONE (05:15)
[2020-03-30 05:16] LABS: ALANINE AMINOTRANSFERASE 38 U/L (0-55); MAGNESIUM 2.1 MG/DL (1.6-2.4)
[2020-03-30 05:29] VITALS: BP 106/75
[2020-03-30] MEDS ORDERED: niCARdipine 25 MG/10 ML (CARDENE) AMP IV ONE (05:48)
[2020-03-30] MEDS ORDERED: NS (IVPB) 250 ML ONE (05:48)
--- NOTE | 2020-03-30 06:57 | Cardiac Procedure Note-CS/ASA ---
Pre-Procedure Note Pre-Op Procedure Note H&P Reviewed The H&P was reviewed, patient examined and no changes noted. Date H&P Reviewed: Mar 30, 2020 Time H&P Reviewed: 04:45 Conscious Sedation Pre-Proced Time 04:45 ASA Score 4 For ASA 3 and 4: Consider anesthesia and medical clearance. Also, for patients with a history of failed moderate sedation consider anesthesia. Airway Lungs Heart ASA score ASA 1: a normal healthy patient ASA 2: a patient with a mild systemic disease (mid diabetes, controlled hypertension, obesity ASA 3: a patient with a severe systemic disease that limits activity (angina, COPD, prior Myocardial infarction) ASA 4: a patient with an incapacitating disease that is a constant threat to life (CHF, renal failure) ASA 5: a moribund patient not expected to survive 24 hrs. (ruptured aneurysm) ASA 6: a declared brain- patient whose organs are being harvested. For emergent operations, add the letter E after the classification Mallampati Classification Grade 2 Sedation Plan Analgesia, Amnesia, Plan communicated to team members, Discussed options with patient/fam, Discussed risks with patient/fam The patient is an appropriate candidate to undergo the planned procedure, sedation, and anesthesia. The patient immediately re-assessed prior to indication. PETER CLAUDIO MD FACP FAC CCDS Mar 30, 2020 06:57
[2020-03-30] MEDS ORDERED: ACETAMINOPHEN 325 MG TABLET PO PRN (07:00)
[2020-03-30] MEDS ORDERED: PATIENT MAY USE OWN MEDS, ALL PO SCH (07:00)
--- NOTE | 2020-03-30 07:04 | Cardiology History & Physical ---
HPI-Cardiology Cardiology H&P Date of Admission 03/30/20 Primary Care Physician David Garces DO Attending Physician Soham Allen MD, MA FACP [facility] Consulting Physician HAMLET CC: Chest discomfort HPI: 64 yo man awoke with cp: midsternal, never experienced before, pressure-like, severe, associated with shortness of breath and diaphoresis, radiating to shou lder, w/o any aggravating or relieving factors. ECG showed in ST elevation. He has a h/o intermittent shortness of breath and is reported to have asthma. He does not report palp or syncope or swelling Review of Systems-Cardiology Review of Systems Constitutional: No malaise, No tiredness, No weight loss, No weight gain Eyes: No vision change Ears/Nose/Throat: No ear discharge, No nasal drainage, No recent hearing loss Respiratory: As described under HPI Cardiovascular: As described under HPI Gastrointestinal: As described under HPI Genitourinary: No dysuria, No hematuria, No urine frequency changes Musculoskeletal: No back pain, No joint pain Skin: No rash, No ulcerations Psychiatric/Neurological: No seizure, No focal weakness, No syncope Hematologic: No bleeding abnormalities PGD-Gzmxnn-Hqsmhu Hx Patient Social History Smoking Status: Never a Smoker Immunizations Up To Date Tetanus Booster (TDap): Unknown Date of Influenza Vaccine: Jan 03, 2017 Past Medical History PMH As described under Assessment. Family Medical History Family Medical History: Does not report fam h/o early CAD or SCD Allergies and Home Medications Allergies Coded Allergies: No Known Drug Allergies (Unverified , 01/02/11) Home Medications Albuterol Sulfate 1 Puff Puff, 2 PUFF IH Q4H PRN for WHEEZING, (Reported) 1 PUFF = 90 MCG Hydrocodone Bit/Acetaminophen 1 Each Tablet, 1-2 TAB PO 4-6HR PRN for PAIN Prescribed by: IRASEMA DIAZ on 02/23/17 0950 Montelukast Sodium 10 Mg Tablet, 10 MG PO HS, (Reported) Omeprazole 20 Mg Tablet.dr, 20 MG PO DAILY, (Reported) Pravastatin Sodium 10 Mg Tablet, 10 MG PO HS, (Reported) Patient Home Medication List Home Medication List Reviewed: Yes Physical Exam-Cardiology Physical Exam Vital Signs/I&O 03/30/20 03/30/20 03/30/20 03/30/20 04:30 04:30 04:53 05:29 Temp 34.7 34.7 Pulse 49 47 Resp 16 16 B/P (MAP) 106/63 (77) 106/75 (77) Pulse Ox 95 95 97 O2 Delivery Room Air Room Air Nasal Cannula Nasal Cannula O2 Flow Rate 2.00 2.00 FiO2 95 Capillary Refill : Less Than 3 Seconds Constitutional: AAO x 3, well-developed, well-nourished HEENT: EOMI, hearing is well preserved; No xanthelasmas are seen Neck: non-tender, carotid pulses are 2 + bilaterally, with good upstrokes Respiratory: No accessory muscle use; other (good bilateral air entry) Cardiovascular: regular rate-rhythm, S1 and S2, systolic murmur (faint ROSMERY at card base) Gastrointestinal: No tender; soft; No guarding, No rebound; audible bowel sounds Extremities: No clubbing, No cyanosis Neurologic/Psychiatric: oriented x 3, other (moves all limbs equally) Skin: diaphoresis (prior to cor intervention); No rash, No ulcerations Data Review Labs Laboratory Tests 03/30/20 04:44: White Blood Count 7.0, Red Blood Count 5.04, Hemoglobin 15.2, Hematocrit 46, Mean Corpuscular Volume 90, Mean Corpuscular Hemoglobin 30, Mean Corpuscular Hemoglobin Concent 33, Red Cell Distribution Width 12.4, Platelet Count 272, Mean Platelet Volume 10.2, Immature Granulocyte % (Auto) 0, Neutrophils (%) (Auto) 55, Lymphocytes (%) (Auto) 34, Monocytes (%) (Auto) 8, Eosinophils (%) (Auto) 2, Basophils (%) (Auto) 1, Neutrophils # (Auto) 3.8, Lymphocytes # (Auto) 2.4, Monocytes # (Auto) 0.6, Eosinophils # (Auto) 0.1, Basophils # (Auto) 0.1, Immature Granulocyte # (Auto) 0.0, Prothrombin Time 12.8, INR Comment 0.9, Activated Partial Thromboplast Time 24, Sodium Level 139, Potassium Level 3.9, Chloride Level 106, Carbon Dioxide Level 24, Anion Gap 9, Blood Urea Nitrogen 17, Creatinine 0.93, Estimat Glomerular Filtration Rate > 60, BUN/Creatinine Ratio 18, Glucose Level 172H, Calcium Level 8.3L, Corrected Calcium 8.5, Magnesium Level 2.1, Total Bilirubin 0.7, Aspartate Amino Transf (AST/SGOT) 24, Alanine Aminotransferase (ALT/SGPT) 38, Alkaline Phosphatase 50, Myoglobin 88.0, Troponin I 0.140H, Total Protein 6.2L, Albumin 3.7 Laboratory Tests 03/30/20 04:44 A/P-Cardiology Assessment/Admission Diagnosis Ac inf wall STEMI treated with primary PCI to the distal RCA CAD - cath of 03/30/20: distally occluded RCA just before the PAD-PL bifurcation, tr eated with PTCA followed by stent that extends across the PDA (good results both for PDA and PL); mod plaque involving LAD and LCX; 70% prox D1; LVEDP 21; LVEF 50%, diaphragmatic wall hypokinesis of the LV H/o asthma Admission Status: Inpatient Order (span 2 midnights) Reason for Inpatient Admission: Ac STEMI Discussion and Recomendations * DAPT * Statin * BB and NATALIE-inhib if tolerated * Monitor labs * Hosp Svce consult for asthma Clinical Quality Measures AMI/AHF: ASA po Prior to arrival: SOHAM Rollins MD FACP FACC CCDS Mar 30, 2020 07:04
[2020-03-30] MEDS: NS IV 1000 ML 1,000 ML IV SCH ×2 (07:45→20:29)
[2020-03-30] MEDS: CLOPIDOGREL 75 MG (PLAVIX) TABLET PO SCH (09:14)
[2020-03-30] MEDS: lisINopril 5 MG (PRINIVIL) TABLET PO SCH (09:15)
[2020-03-30] MEDS: ASPIRIN 81 MG CHEW (CHILDREN'S ASA) PO SCH (09:15)
--- NOTE | 2020-03-30 10:29 | CARDIAC CATHETERIZATION ---
DATE OF SERVICE: CARDIAC CATHETERIZATION AND CORONARY INTERVENTION REPORT INDICATION FOR PROCEDURE: The patient is a 64-year-old man, who presented to the emergency room with acute ST elevation myocardial infarction involving the inferior wall. Emergency cardiac catheterization was recommended and consent obtained for a cardiac catheterization and possible ad hoc coronary intervention. DESCRIPTION OF PROCEDURE: He was brought to the cardiac catheterization laboratory. The right groin was prepared and draped in the usual sterile fashion. Lidocaine 1% was used for local anesthesia. Modified Seldinger technique was used to advance a 6-[place] sheath into the right femoral artery. A 6-[place] JR4 catheter was used for a right coronary angiography, that was followed by intervention to the distal right coronary, where the culprit lesion. This is described below. Following completion of this procedure, we carried out left coronary angiography with a 6-[place] JL4 catheter. We then used a pigtail catheter to carry out left heart catheterization, left ventricular angiography. The catheter was pulled back and removed. Angiography of the right femoral artery was carried out through the sheath. Mynx was used to achieve hemostasis. PERCUTANEOUS INTERVENTION TO THE RIGHT CORONARY ARTERY: We used a 6-[place] JR4 guide catheter with side holes and advanced a ChoICE floppy wire across the lesion in the distal right coronary artery, where the vessel was completely occluded just prior to the bifurcation of the artery into the posterolateral and posterior descending branches. We were able to advance the wire into the posterior descending artery. We carried out balloon angioplasty to restore antegrade flow from JENNIFER 0 to JENNIFER 2. The balloon used was a 2.0 x 20 mm balloon. The wire was then pulled back and advanced into the posterolateral system and balloon angioplasty was carried out in that segment, as well. We then stented the lesion that extended right up to the bifurcation. We used a Xience Janae 2.25 x 18 mm stent. The lesion was fully covered. The stent does extend across the posterior descending branch into the posterolateral system. The results were good for both the posterior descending artery and the posterolateral system. Flow improved from JENNIFER 0 to JENNIFER 3. There was some sluggishness of flow. For this reason, the patient got 1000 mcg of nicardipine. He also received 200 mcg of intracoronary nitroglycerin. In addition to 5000 units of intravenous heparin he had received in the emergency room, he received 2000 in the cardiac catheterization laboratory. He received a double bolus of Integrilin during the procedure. He had received aspirin and Plavix in the emergency room. He was given 300 mg of Plavix in the emergency room and received additional 300 mg at the end of the procedure in the cardiac catheterization laboratory. HEMODYNAMICS: Left ventricular end-diastolic pressure following coronary angiography was 21 mmHg. There was no significant pressure gradient on pullback across the aortic valve. Ascending aortic pressure was 122/64 with a mean of 86 mmHg. CORONARY ANGIOGRAPHY: Coronary calcification is seen. Left main coronary artery does not exhibit significant obstructive disease. Left anterior descending and left circumflex arteries have moderate plaque in their mid and distal segments. The first diagonal branch of the left anterior descending artery has approximately 70% proximal stenosis. This was not intervened on at this time. The right coronary artery was completely occluded just prior to the bifurcation into posterior descending and posterolateral systems. This was intervened on, first with balloon angioplasty and then with stenting. Following deployment of Xience Janae 2.25 x 18 mm stent, there was no significant residual stenosis and flow throughout the vessel is normal. The stent extends across the origin of the posterior descending branch of the right coronary artery and has not caused any compromise to that vessel. LEFT VENTRICULAR ANGIOGRAPHY: Left ventricular angiography was carried out in the HELMS projection. There is some hypokinesis of the diaphragmatic wall of the left ventricle. The rest of the ventricular contreras appear to contract well. Left ventricular ejection fraction is estimated to be approximately 50%. CONCLUSIONS: 1. Coronary artery disease consisting of distal occlusion of the right coronary artery to which successful stenting was carried out. Following deployment of Xience Janae 2.25 x 18 mm stent, there is no significant residual stenosis in the distal right coronary artery and the flow is normal. The first diagonal branch of the left anterior descending artery has 70% proximal stenosis that was not intervened on at this time. The rest of the left anterior descending and the left circumflex arteries have moderate diffuse plaque. 2. Mild impairment of global left ventricular systolic function with hypokinesis of the diaphragmatic wall of the left ventricle with an ejection fraction approximately of 50%. 3. Moderate elevation of left ventricular end-diastolic pressures. DISCUSSION AND RECOMMENDATIONS: We are adding dual antiplatelet therapy to the regimen. Beta beta-blockers and NATALIE inhibitors will be given as tolerated. Statin is being added. Further recommendation will be based on his hospital course. Job ID: [id number] DocumentID: [id number] Dictated Date: 03/30/2020 07:19:39 Office Machine Installer Date: 03/30/2020 10:29:20 Dictated By: PETER CLAUDIO MD, MA, FACP, FACC,
[2020-03-30] MEDS: ENOXAPARIN 40 MG/0.4 ML (LOVENOX) SYR SC SCH (11:07)
--- NOTE | 2020-03-30 12:54 | Consultation - Hospitalist ---
HPI History of Present Illness: HPI/Chief Complaint Edwar Carrizales is a 64-year-old male with past medical history of hypertension, obesity, who presented with chest pain. He was awoken from sleep and had burning left-sided chest pain which worsened and radiated to his left arm. He had associated diaphoresis. He denied nausea and vomiting. He denied shortness of breath. He has no history of coronary artery disease. He is a nonsmoker. Source: patient Exam Limitations: no limitations Date Seen 03/30/20 Attending Physician Soham Allen MD Facp Fac Ccds PCP David Garces DO Referring Physician Date of Admission Home Medications & Allergies Home Medications Reviewed patient Home Medication Reconciliation performed by pharmacy medication reconciliations elevator service technician and/or nursing. Patients Allergies have been reviewed. Allergies Allergies Coded Allergies No Known Drug Allergies (Lzuwabodrm42/29/11) Past Furaxtz-Cbsjun-Tcppuq Hx Past Med/Social Hx: Reviewed Nursing Past Med/Soc Hx Patient Social History Alcohol Use: Occasionally Uses Recreational Drug Use: No Smoking Status: Never a Smoker Recent Foreign Travel: No Contact w/other who traveled: No Recent Hopitalizations: No Recent Infectious Disease Expo: No Immunizations Up To Date Tetanus Booster (TDap): Unknown Pediatric: No Date of Influenza Vaccine: Dec 28, 2020 Seasonal Allergies Seasonal Allergies: Yes Past Medical History Cardiac: High Cholesterol, Hypertension Reproductive: No Sexually Transmitted Disease: No Gastrointestinal: Diverticulosis History of Blood Disorders: No Review of Systems Constitutional: no symptoms reported EENTM: no symptoms reported Respiratory: no symptoms reported Cardiovascular: chest pain Gastrointestinal: no symptoms reported Genitourinary: no symptoms reported Musculoskeletal: no symptoms reported Skin: no symptoms reported Psychiatric/Neurological: No Symptoms Reported Physical Exam Physical Exam Vital Signs Vital Signs - First Documented 03/30/20 04:53 O2 Flow Rate 2.00 FiO2 95 Capillary Refill : Less Than 3 Seconds Height, Weight, BMI Height: 5'9.00" Weight: 200lbs. 0.0oz. 90.422155gs; 30.00 BMI Method: General Appearance: No Apparent Distress, Obese HEENT: PERRL/EOMI, Pharynx Normal Neck: Normal Inspection, Supple Respiratory: Lungs Clear, Normal Breath Sounds, No Respiratory Distress Cardiovascular: Regular Rate, Rhythm, No Edema, No Murmur Gastrointestinal: Normal Bowel Sounds, Non Tender, Soft Extremity: Normal Inspection, Non Tender, No Pedal Edema Neurologic/Psychiatric: Alert, Oriented x3, No Motor/Sensory Deficits, Normal Mood/Affect Skin: Normal Color, Warm/Dry Lymphatic: No Adenopathy Results Results/Procedures Labs Laboratory Tests 03/30/20 04:44 Patient resulted labs reviewed. Assessment/Plan Assessment and Plan Assess & Plan/Chief Complaint STEMI EKG revealed ST elevations in II, III, and aVF Cardiology primary Emergently taken for left heart catheterization, stent placed in distal RCA Started on ASA and Plavix Started on Lisinopril and Metoprolol Started on Lipitor Add on lipid waist cutter on telemetry HTN Lisinopril and Metoprolol Hyperglycemia Add on A1C Sliding scale insulin Obesity Clinically significant, no acute management needs DVT prophylaxis: Lovenox Diagnosis/Problems Diagnosis/Problems (1) Acute ST elevation myocardial infarction (STEMI) due to occlusion of distal portion of right coronary artery Status: Acute (2) CAD (coronary artery disease) Status: Acute (3) HTN (hypertension) Status: Chronic (4) Obesity Status: Chronic (5) Hyperglycemia Status: Acute Clinical Quality Measures AMI/AHF: ASA po Prior to arrival: BE Greenfield MD Mar 30, 2020 12:54
[2020-03-30 13:05] LABS: CHOLESTEROL 165 MG/DL (< 200); HDL CHOLESTEROL 39 MG/DL (40-60); TRIGLYCERIDES 111 MG/DL (<150); VLDL CHOLESTEROL 22 MG/DL (5-40)
--- NOTE | 2020-03-30 14:06 | NUR ---
phone call placed to pts . Update regarding patients condition. informed of updating policy, states she understands and has no questions regarding phone calls. was given list of things patient would like brought to the er. given instructions on where to drop off items. states she has no further questions or concerns at this time.
[2020-03-30] MEDS: inSUlin ASPART (NovoLOG) 1 UNIT/0.01 ML (CHARGE PER UNIT) SC SCH ×2 (16:54→22:12)
[2020-03-31] MEDS: NS IV 1000 ML 1,000 ML IV SCH (00:50)
[2020-03-31 04:37] LABS: HEMOGLOBIN 14.4 g/dL (13.3-17.7); MEAN PLATELET VOLUME 10.6 fL (9.0-12.2); WHITE BLOOD COUNT 8.7 10^3/uL (4.3-11.0)
[2020-03-31 05:00] LABS: CHLORIDE 109 MMOL/L (98-107); POTASSIUM 3.9 MMOL/L (3.6-5.0); SODIUM 139 MMOL/L (135-145)
[2020-03-31 05:01] LABS: CALCIUM 7.9 MG/DL (8.5-10.1)
[2020-03-31 05:02] LABS: GLUCOSE 99 MG/DL (70-105)
[2020-03-31 05:03] LABS: CARBON DIOXIDE 22 MMOL/L (21-32); TRIGLYCERIDES 154 MG/DL (<150); VLDL CHOLESTEROL 31 MG/DL (5-40)
[2020-03-31 05:06] LABS: BUN/CREATININE RATIO 16; CREATININE SERUM 0.79 MG/DL (0.60-1.30); GFR ESTIMATED > 60
[2020-03-31 05:08] LABS: CHOLESTEROL 152 MG/DL (< 200); HDL CHOLESTEROL 34 MG/DL (40-60)
[2020-03-31] MEDS: inSUlin ASPART (NovoLOG) 1 UNIT/0.01 ML (CHARGE PER UNIT) SC SCH ×2 (07:04→12:12)
[2020-03-31] MEDS: lisINopril 5 MG (PRINIVIL) TABLET PO SCH (08:33)
[2020-03-31] MEDS: ASPIRIN 81 MG CHEW (CHILDREN'S ASA) PO SCH (08:33)
[2020-03-31] MEDS: CLOPIDOGREL 75 MG (PLAVIX) TABLET PO SCH (08:33)
--- NOTE | 2020-03-31 08:37 | Progress Note - Hospitalist ---
Subjective HPI/CC On Admission Date Seen by Provider: Mar 31, 2020 Time Seen by Provider: 08:23 Edwar Carrizales is a 64-year-old male with past medical history of hypertension, obesity, who presented with chest pain. He was awoken from sleep and had burning left-sided chest pain which worsened and radiated to his left arm. He had associated diaphoresis. He denied nausea and vomiting. He denied shortness of breath. He has no history of coronary artery disease. He is a nonsmoker. Subjective/Events-last exam Pt reports feeling well. No complaints. Hopeful for discharge later today. Objective Exam Vital Signs Vital Signs Date Time Temp Pulse Resp B/P (MAP) Pulse Ox O2 Delivery O2 Flow Rate FiO2 03/31/20 04:56 37.0 63 14 136/81 (99) 95 Nasal Cannula 2.00 03/30/20 04:53 95 Capillary Refill : Less Than 3 Seconds General Appearance: No Apparent Distress, WD/WN Respiratory: Lungs Clear, No Respiratory Distress Cardiovascular: Regular Rate, Rhythm, No Murmur Neurologic/Psychiatric: Alert, Oriented x3 Results/Procedures Lab Laboratory Tests 03/31/20 03:50 Patient resulted labs reviewed. Assessment/Plan Assessment and Plan Assess & Plan/Chief Complaint STEMI EKG revealed ST elevations in II, III, and aVF on arrival Cardiology primary s/p left heart catheterization, stent placed in distal RCA Continue ASA and Plavix Continue Lisinopril and Metoprolol Cont Lipitor LDL 108, HDl 34, continue statin Monitor on telemetry HTN Lisinopril and Metoprolol Hyperglycemia A1c pending, fasting blood sugar 99 this AM Sliding scale insulin Obesity Clinically significant, no acute management needs DVT prophylaxis: Lovenox Clinical Quality Measures AMI/AHF: ASA po Prior to arrival: MARIA DEL CARMEN Shanks MD Mar 31, 2020 08:37
[2020-03-31] MEDS: ENOXAPARIN 40 MG/0.4 ML (LOVENOX) SYR SC SCH (12:05)
--- NOTE | 2020-03-31 12:55 | NUR ---
smoking cessation edu orders rec'd. Rapport established. Visited with pt about smoking cessation. Offered Lior quit information/number and mentioned [facility] classes at the hospital once again when we are given the go-ahead to begin classes once again. Handout on smoking cessation given. patient appreciative of information.
[2020-03-31] MEDS ORDERED: FLUT9.9S NS (14:16)
[2020-03-31] MEDS ORDERED: LOSA50TA63 PO (14:16)
[2020-03-31] MEDS ORDERED: CHOL200074 PO (14:16)
[2020-03-31] MEDS ORDERED: ASPI-1238 PO (14:16)
[2020-03-31] MEDS ORDERED: FLUT1DIS26 IH (14:18)
--- NOTE | 2020-03-31 14:21 | NUR ---
SPOKE WITH THE PT, WENT THRU THE EXT MED HISTORY AND CALLED [facility] TO COMPLETE THE MED REC ACCORDING TO THE PT HE IS NO LONGER TAKING BREO (IT IS SHOWN ON THE EXT MED HISTORY) AND IS NOW TAKING ADVAIR 250/50 (LAST FILLED 01-28-2020 #3/90DS AT [facility]). OTC MEDS: VIT D3 ASPIRIN 81 FLONASE
--- NOTE | 2020-03-31 16:51 | Cardiology Progress Note ---
Subjective Date Seen by Provider: Mar 31, 2020 Time Seen by Provider: 16:50 Subjective/Events-last exam Patient was seen at bedside laying down comfortably, denied any active pain. No chest pain, groin is healing well Review of Systems General: No Chills, No Night Sweats, No Fatigue, No Malaise, No Appetite, No Other HEENT: No Head Aches, No Visual Changes, No Eye Pain, No Ear Pain, No Dysphasia, No Sinus Congestion, No Post Nasal Drip, No Sore Throat, No Other Pulmonary: No Dyspnea, No Cough, No Pleuritic Chest Pain, No Other Cardiovascular: No: Chest Pain, Palpitations, Orthopnea, Paroxysmal Noc. Dyspnea, Edema, Lt Headedness, Other Objective-Cardiology Exam Last Set of Vital Signs Vital Signs 03/30/20 03/31/20 03/31/20 04:53 04:56 15:07 Temp 36.6 Pulse 65 Resp 20 B/P (MAP) 130/75 (93) Pulse Ox 95 O2 Delivery Room Air O2 Flow Rate 2.00 FiO2 95 Capillary Refill : Less Than 3 Seconds I&O Intake and Output 03/31/20 00:00 Intake Total 550 ml Output Total 400 ml Balance 150 ml Intake Oral 550 ml Output Urine Total 400 ml # Voids 3 General: Alert, Oriented X3, Cooperative HEENT: Atraumatic, PERRLA Neck: Supple, No JVD, No Thyromegaly Lungs: Clear to Auscultation, Normal Air Movement Heart: Regular Rate, Normal S1, Normal S2, No Murmurs Abdomen: Normal Bowel Sounds, Soft, No Tenderness, No Hepatosplenomegaly, No Masses Extremities: No Clubbing, No Cyanosis, No Edema, Normal Pulses, No Tenderness/Swelling Skin: No Rashes, No Breakdown, No Significant Lesion Neuro: Normal Gait, Normal Speech, Strength at 5/5 X4 Ext, Normal Tone, Sensation Intact Psych/Mental Status: Mental Status NL, Mood NL Results Lab Laboratory Tests 03/31/20 03:50 A/P-Cardiology Admission Diagnosis Acute ST elevation myocardial infarction Coronary artery disease Hypertension Hyperlipidemia Assessment/Plan Acute ST elevation myocardial infarction in the inferior wall status post emergency cardiac catheterization and stenting to the right coronary artery with good results, patient has a lesion in the LAD that was not intervened on. Continue to monitor at this time Coronary artery disease as described above. Continue on aspirin and Plavix Hypertension, controlled, continue to monitor blood pressure Hyperlipidemia, monitor lipids Clinical Quality Measures AMI/AHF: ASA po Prior to arrival: FLAVIO Giordano MD Mar 31, 2020 16:51
[2020-04-01] MEDS: NS IV 1000 ML 1,000 ML IV SCH (00:47)
[2020-04-01] MEDS: ASPIRIN 81 MG CHEW (CHILDREN'S ASA) PO SCH (08:31)
[2020-04-01] MEDS: lisINopril 5 MG (PRINIVIL) TABLET PO SCH (08:31)
[2020-04-01] MEDS: CLOPIDOGREL 75 MG (PLAVIX) TABLET PO SCH (08:31)
[2020-04-01] MEDS ORDERED: ATOR80TA76 PO (10:36)
[2020-04-01] MEDS ORDERED: MTP25TSR PO (10:36)
[2020-04-01] MEDS ORDERED: CLOP75TA28 PO (10:36)
--- NOTE | 2020-04-01 10:37 | Discharge Inst-Post CATH ---
Discharge Inst-CATH/EP Problems Reviewed?: Yes Post Cardiac Cath/EP D/C Inst Follow Up/Plan appointment with Dr. Allen's office in 2 weeks <b>CARDIAC CATH/EP PROCEDURE DISCHARGE INSTRUCTIONS</b> ACTIVITY * Go Home directly and rest. * Limit activity of the leg (or wrist if it was used) for 7 days including aerobics, swimming, jogging, bicycling, etc. * Restrict stair-climbing for 7 days if possible, if not, climb up with your non-cath leg, then bring together on the same step. * Avoid lifting, pushing, pulling or excessive movement of the affected extremity for 7 days. * Customary sexual activity may be resumed after 2 days-use caution not to use a position that strains or causes pain to the affected extremity. * No driving for 24 hours. * NO SMOKING. * Avoid straining for bowel movements for 7 days. * Gentle walking on level ground is allowed. * Returning to work will depend on the type of procedure and the results. Your doctor will discuss this with you. CALL YOUR DOCTOR FOR ANY OF THE FOLLOWING: *If bleeding from the puncture site occurs- Apply gentle pressure to site with clean cloth and call your doctor or EMS. * If a knot or lump forms under the skin, increases in size, or causes pain. * If bruising appears to be worsening or moving further down your leg instead of disappearing. * Temperature above 101 F. CARE OF YOUR GROIN INCISION; * Bruising or purple discoloration of the skin near the puncture site is common. * You may shower only, no bathtub bathing for 5 days. Be careful to avoid slipping as your leg may feel stiff. * If a closure device was used on your femoral artery, please see the attached guide regarding care of the device and your leg. * Leave dressing on FOR 24 hours. CARE OF YOUR WRIST INCISION; * Bruising or purple discoloration of the skin near the puncture site is common. * You may shower. * DO NOT submerge wrist. * Leave dressing on FOR 24 hours. FLAVIO RANDHAWA MD Apr 01, 2020 10:37
--- NOTE | 2020-04-01 10:38 | Cardiology Progress Note ---
Subjective Date Seen by Provider: Apr 01, 2020 Time Seen by Provider: 10:37 Subjective/Events-last exam patient is laying down in bed, feeling well. No chest pain, no shortness of breath, groin is healing well. Review of Systems General: No Chills, No Night Sweats, No Fatigue, No Malaise, No Appetite, No Other HEENT: No Head Aches, No Visual Changes, No Eye Pain, No Ear Pain, No Dysphasia, No Sinus Congestion, No Post Nasal Drip, No Sore Throat, No Other Pulmonary: No Dyspnea, No Cough, No Pleuritic Chest Pain, No Other Cardiovascular: No: Chest Pain, Palpitations, Orthopnea, Paroxysmal Noc. Dyspnea, Edema, Lt Headedness, Other Objective-Cardiology Exam Last Set of Vital Signs Vital Signs 03/30/20 03/31/20 04/01/20 04/01/20 04:53 04:56 08:33 08:37 Temp 36.4 Pulse 74 Resp 16 B/P (MAP) 126/81 (96) Pulse Ox 94 O2 Delivery Room Air O2 Flow Rate 2.00 FiO2 95 Capillary Refill : Less Than 3 Seconds I&O Intake and Output 04/01/20 00:00 Intake Total 460 ml Balance 460 ml Intake Oral 460 ml # Voids 8 # Bowel Movements 1 General: Alert, Oriented X3, Cooperative HEENT: Atraumatic, PERRLA Neck: Supple, No JVD, No Thyromegaly Lungs: Clear to Auscultation, Normal Air Movement Heart: Regular Rate, Normal S1, Normal S2, No Murmurs Abdomen: Normal Bowel Sounds, Soft, No Tenderness, No Hepatosplenomegaly, No Masses Extremities: No Clubbing, No Cyanosis, No Edema, Normal Pulses, No Tenderness/Swelling Skin: No Rashes, No Breakdown, No Significant Lesion Neuro: Normal Gait, Normal Speech, Strength at 5/5 X4 Ext, Normal Tone, Sensation Intact Psych/Mental Status: Mental Status NL, Mood NL A/P-Cardiology Admission Diagnosis Acute ST elevation myocardial infarction Coronary artery disease Hypertension Hyperlipidemia Assessment/Plan status post acute ST elevation myocardial infarction in the inferior wall status post emergency cardiac catheterization and stenting to the right coronary artery with good results, patient has a lesion in the LAD that was not intervened on. Continue to monitor at this time Coronary artery disease as described above. Continue on aspirin and Plavix Hypertension, controlled, continue to monitor blood pressure Hyperlipidemia, monitor lipids okay for discharge from cardiology standpoint, follow-up with Dr. Allen in 2 weeks Clinical Quality Measures AMI/AHF: ASA po Prior to arrival: FLAVIO Giordano MD Apr 01, 2020 10:38
[2020-04-01] MEDS: ENOXAPARIN 40 MG/0.4 ML (LOVENOX) SYR SC SCH (11:30)
--- NOTE | 2020-04-01 11:53 | Cardiology Discharge Summary ---
Discharge Summary Hospital Course Problems Reviewed?: Yes Hospital Course Date of Admission: Admission Diagnosis : Family Physician/Provider: David Garces DO Date of Discharge: 04/01/20 Discharge Diagnosis: [ coronary artery disease Acute ST elevation myocardial infarctions Hypertension Hyperlipidemia] Hospital Course: [status post acute ST elevation myocardial infarction in the inferior wall status post emergency cardiac catheterization and stenting to the right coronary artery with good results, patient has a lesion in the LAD that was not intervened on. Continue to monitor at this time Coronary artery disease as described above. Continue on aspirin and Plavix Hypertension, controlled, continue to monitor blood pressure Hyperlipidemia, monitor lipids okay for discharge from cardiology standpoint, follow-up with Dr. Allen in 2 weeks ] Labs and Pending Lab Test: Laboratory Tests 03/31/20 12:11: Glucometer 88 Microbiology 03/30/20 MRSA Screen - Final, Complete MRSA not isolated Home Meds Active Metoprolol Succinate 25 Mg Tab.er.24h 25 Mg PO DAILY Atorvastatin Calcium 80 Mg Tablet 80 Mg PO HS Clopidogrel (Clopidogrel Bisulfate) 75 Mg Tablet 75 Mg PO DAILY Reported Advair 250-50 Diskus (Fluticasone/Salmeterol) 1 Each Blst.w.dev 1 Each IH BID Flonase Allergy Relief (Fluticasone Propionate) 9.9 Ml [place].susp 2 [place] NS DAILY PRN Aspirin EC (Aspirin) 81 Mg Tablet. 81 Mg PO DAILY Vitamin D3 (Cholecalciferol (Vitamin D3)) 50 Mcg Capsule 50 Mcg PO DAILY Losartan Potassium 50 Mg Tablet 50 Mg PO DAILY Pravastatin Sodium 10 Mg Tablet 10 Mg PO DAILY Omeprazole 20 Mg Tablet. 20 Mg PO DAILY Montelukast Sodium 10 Mg Tablet 10 Mg PO DAILY Assessment/Pt DC Instructions appointment with Dr. Allen's office in 2 weeks Discharge Physical Examination Allergies: Coded Allergies: No Known Drug Allergies (Unverified , 01/02/11) General Appearance: No Apparent Distress, WD/WN HEENT: PERRL/EOMI, TMs Normal, Normal ENT Inspection Respiratory: Chest Non Tender, Lungs Clear, Normal Breath Sounds, No Accessory Muscle Use Cardiovascular: Regular Rate, Rhythm, No Murmur Clinical Quality Measures AMI/AHF: ASA po Prior to arrival: FLAVIO Giordano MD Apr 01, 2020 11:53
== END 2020-04-01 14:20 | disposition home or self-care (01) ==
LOC: EDUNIT# 04:29 → ER 04:31 → CATH 05:29 → ICU 08:09 → CSD 16:24 → CATH 04-01 14:20
PROVIDERS: ATTEND Internal Medicine Cardiovascular Disease
DX: I25.10 Atherosclerotic heart disease of native coronary artery without angina pectoris (principal); I21.3 ST elevation (STEMI) myocardial infarction of unspecified site; I10 Essential (primary) hypertension; E78.5 Hyperlipidemia, unspecified; J44.9 Chronic obstructive pulmonary disease, unspecified; E78.00 Pure hypercholesterolemia, unspecified; K57.90 Diverticulosis of intestine, part unspecified, without perforation or abscess without bleeding; Z79.899 Other long term (current) drug therapy; Z79.51 Long term (current) use of inhaled steroids
CPT/HCPCS: 80053; 80061; 82962; 83036; 83735; 83874; 84484; 85025; 85610; 85730; 87081; 93005 ×2; 93041; 93306; 93458; 99291; C1725; C1760; C1769; C1874; C1887; C1894; C9606; 36415

== ENCOUNTER → 2020-04-18 | Outpatient (CLI) | payer MEDICARE, OTHER ==
[~2020-04-18] MED LIST changes: +ASPI-1238 PO; +ATOR80TA76 PO; +CHOL200074 PO; +CLOP75TA28 PO; +FLUT1DIS26 IH; +FLUT9.9S NS; +LOSA50TA63 PO; +MONT10TA32 PO; -MONT10TA97 PO; +MTP25TSR PO
== END ==
LOC: CARD 11:13
PROVIDERS: ATTEND Internal Medicine Cardiovascular Disease
DX: I35.1 Nonrheumatic aortic (valve) insufficiency (principal); I25.2 Old myocardial infarction
CPT/HCPCS: 93306

== ENCOUNTER → 2021-09-09 | Outpatient (CLI) | payer MEDICARE, OTHER ==
[~2021-09-09] MED LIST changes: +MONT-40 PO; -MONT10TA32 PO; +OMEP20TA56 PO; -OMEP20TA7 PO; +RT-ALBUTEROL SULF 2.5 MG/3 ML PRE-MIX VIAL INH ONE
== END ==
LOC: RT 10:47
PROVIDERS: ATTEND Internal Medicine Critical Care Medicine
DX: J45.909 Unspecified asthma, uncomplicated (principal)
CPT/HCPCS: 94060; 94621; 94726; 94729

== ENCOUNTER 2022-06-04 08:45 | Emergency (ER) | payer MEDICARE, OTHER ==
[~2022-06-04] VITALS: Ht 175.3 cm; Wt 92.9 kg
[~2022-06-04 08:45] MED LIST changes: +ALBU8.5H6 IH; -RT-ALBUINH IH; -RT-ALBUTEROL SULF 2.5 MG/3 ML PRE-MIX VIAL INH ONE
[2022-06-04 09:23] LABS: BASOPHILS % (AUTO) 1 % (0-10); EOSINOPHILS # (AUTO) 0.1 10^3/uL (0.0-0.3); EOSINOPHILS % (AUTO) 1 % (0-10); HEMATOCRIT 45 % (40-54); HEMOGLOBIN 15.7 g/dL (13.3-17.7); LYMPHOCYTES # (AUTO) 1.3 10^3/uL (1.0-4.0); LYMPHOCYTES % (AUTO) 22 % (12-44); MEAN CORPUSCULAR HEMOGLOBIN 31 pg (25-34); MEAN CORPUSCULAR HGB CONC 35 g/dL (32-36); MEAN CORPUSCULAR VOLUME 89 fL (80-99); MEAN PLATELET VOLUME 10.3 fL (9.0-12.2); MONOCYTES # (AUTO) 0.5 10^3/uL (0.0-1.0); MONOCYTES % (AUTO) 8 % (0-12); NEUTROPHILS # (AUTO) 4.2 10^3/uL (1.8-7.8); NEUTROPHILS % (AUTO) 69 % (42-75); PLATELET COUNT 246 10^3/uL (130-400); WHITE BLOOD COUNT 6.2 10^3/uL (4.3-11.0)
--- NOTE | 2022-06-04 09:24 | ED Cardiac General ---
History of Present Illness General Chief Complaint: Cardiac/General Problems Stated Complaint: HIGH BLOOD PRESSURE Nursing Triage Note: PT AMB TO [facility] WITH COMPLAINT OF HTN THAT STARTED TUESDAY. STATES HE IS HAVING DIZZINESS AND A HEADACHE. TAKES METOPROLOL AND AMLODIPINE AT HOME. History of Present Illness Date Seen by Provider: Jun 04, 2022 Time Seen by Provider: 09:10 Initial Comments 66-year-old male sent in by his primary care provider to be evaluated. Patient has a history of uncontrolled hypertension. Patient blood pressure been running high and yesterday his metoprolol was increased and he was a started on amlodipine. Patient reports he had a "twinge" in his left chest around 5:00 this morning when he got up and has a little bit of a headache and maybe some dizziness so they sent him in to be evaluated. No nausea, vomiting, shortness of breath or other systemic complaints. Allergies and Home Medications Allergies Coded Allergies: No Known Drug Allergies (Unverified , 01/02/11) Patient Home Medication List Home Medication List Reviewed: Yes Aspirin (Aspirin EC) 81 Mg Tablet.dr, 81 MG PO DAILY, (Reported) Entered as Reported by: GRISELDA ZIMMERMAN on 03/31/20 141 Atorvastatin Calcium (Atorvastatin Calcium) 80 Mg Tablet, 80 MG PO HS Prescribed by: FLAVIO RANDHAWA on 04/01/20 1036 Cholecalciferol (Vitamin D3) (Vitamin D3) 50 Mcg Capsule, 50 MCG PO DAILY, (Reported) Entered as Reported by: GRISELDA ZIMMERMAN on 03/31/20 141 Clopidogrel Bisulfate (Clopidogrel) 75 Mg Tablet, 75 MG PO DAILY Prescribed by: FLAVIO RANDHAWA on 04/01/20 1036 Fluticasone Propionate (Flonase Allergy Relief) 9.9 Ml [place].susp, 2 [place] NS D AILY PRN for CONGESTION, (Reported) Entered as Reported by: GRISELDA ZIMMERMAN on 03/31/20 141 Fluticasone/Salmeterol (Advair 250-50 Diskus) 1 Each Blst.w.dev, 1 EACH IH BID, (Reported) Entered as Reported by: GRISELDA ZIMMERMAN on 03/31/20 1418 Losartan Potassium (Losartan Potassium) 50 Mg Tablet, 50 MG PO DAILY, (Reported) Entered as Reported by: GRISELDA ZIMMERMAN on 03/31/20 1416 Metoprolol Succinate (Metoprolol Succinate) 25 Mg Tab.er.24h, 25 MG PO DAILY Prescribed by: FLAVIO RANDHAWA on 04/01/20 1036 Montelukast Sodium (Montelukast Sodium) 10 Mg Tablet, 10 MG PO DAILY, (Reported) Entered as Reported by: VON MCCURDY on 02/03/17 1545 Omeprazole (Omeprazole) 20 Mg Tablet.dr, 20 MG PO DAILY, (Reported) Entered as Reported by: VON MCCURDY on 02/03/17 1545 Review of Systems Review of Systems Constitutional: No chills; dizziness; No fever EENTM: No Symptoms Reported Respiratory: Denies Cough, Denies Shortness of Air, Denies SOA at Rest Cardiovascular: See HPI; Denies Irregular Heart Rate, Denies Palpitations, Denies Syncope Gastrointestinal: No Symptoms Reported Genitourinary: No Symptoms Reported Musculoskeletal: no symptoms reported Skin: no symptoms reported Psychiatric/Neurological: See HPI Past Stwgbki-Qjhghc-Btvvyx Hx Patient Social History Tobacco Use?: No Use of E-Cig and/or Vaping dev: No Substance use?: No Alcohol Use?: No Pt feels they are or have been: No Immunizations Up To Date Tetanus Booster (TDap): Unknown PED Vaccines UTD: No Seasonal Allergies Seasonal Allergies: Yes Past Medical History Surgeries: Yes Abdominal, Gallbladder Respiratory: Yes Asthma, Pneumonia Cardiac: Yes High Cholesterol, Hypertension Neurological: No Reproductive Disorders: No Sexually Transmitted Disease: No Genitourinary: No Gastrointestinal: Yes Diverticulosis, Gall Bladder Disease Musculoskeletal: No Endocrine: No HEENT: No Cancer: No Psychosocial: No Integumentary: No Blood Disorders: No Physical Exam Vital Signs Vital Signs - First Documented 06/04/22 08:55 Temp 35.7 Pulse 62 Resp 14 B/P (MAP) 162/95 (117) Pulse Ox 96 O2 Delivery Room Air Capillary Refill : Less Than 3 Seconds Height, Weight, BMI Height: 5'9.00" Weight: 200lbs. 0.0oz. 90.478371qt; 30.00 BMI Method: General Appearance: No Apparent Distress, WD/WN HEENT: PERRL/EOMI Neck: Normal Inspection, Supple Respiratory: Lungs Clear, Normal Breath Sounds Cardiovascular: Regular Rate, Rhythm, No Edema Gastrointestinal: Non Tender, Soft Extremity: Normal Capillary Refill, Normal Inspection, Normal Range of Motion Neurologic/Psychiatric: Alert, Oriented x3, No Motor/Sensory Deficits, Normal Mood/Affect, textile knitter II-XII Norm as Tested Skin: Normal Color, Warm/Dry Progress/Results/Core Measures Results/Orders Lab Results Laboratory Tests Test 06/04/22 09:15 Range/Units White Blood Count 6.2 4.3-11.0 10^3/uL Red Blood Count 5.09 4.30-5.52 10^6/uL Hemoglobin 15.7 13.3-17.7 g/dL Hematocrit 45 40-54 % Mean Corpuscular Volume 89 80-99 fL Mean Corpuscular Hemoglobin 31 25-34 pg Mean Corpuscular Hemoglobin Concent 35 32-36 g/dL Red Cell Distribution Width 12.8 10.0-14.5 % Platelet Count 246 130-400 10^3/uL Mean Platelet Volume 10.3 9.0-12.2 fL Immature Granulocyte % (Auto) 0 % Neutrophils (%) (Auto) 69 42-75 % Lymphocytes (%) (Auto) 22 12-44 % Monocytes (%) (Auto) 8 0-12 % Eosinophils (%) (Auto) 1 0-10 % Basophils (%) (Auto) 1 0-10 % Neutrophils # (Auto) 4.2 1.8-7.8 10^3/uL Lymphocytes # (Auto) 1.3 1.0-4.0 10^3/uL Monocytes # (Auto) 0.5 0.0-1.0 10^3/uL Eosinophils # (Auto) 0.1 0.0-0.3 10^3/uL Basophils # (Auto) 0.0 0.0-0.1 10^3/uL Immature Granulocyte # (Auto) 0.0 0.0-0.1 10^3/uL Sodium Level 141 135-145 MMOL/L Potassium Level 3.8 3.6-5.0 MMOL/L Chloride Level 108 H 98-107 MMOL/L Carbon Dioxide Level 25 21-32 MMOL/L Anion Gap 8 5-14 MMOL/L Blood Urea Nitrogen 13 7-18 MG/DL Creatinine 0.70 0.60-1.30 MG/DL Estimat Glomerular Filtration Rate 100 BUN/Creatinine Ratio 19 Glucose Level 100 70-105 MG/DL Calcium Level 8.9 8.5-10.1 MG/DL Corrected Calcium 8.8 8.5-10.1 MG/DL Magnesium Level 2.0 1.6-2.4 MG/DL Total Bilirubin 1.1 H 0.1-1.0 MG/DL Aspartate Amino Transf (AST/SGOT) 34 5-34 U/L Alanine Aminotransferase (ALT/SGPT) 49 0-55 U/L Alkaline Phosphatase 62 40-136 U/L Troponin I < 0.028 <0.028 NG/ML Total Protein 6.8 6.4-8.2 GM/DL Albumin 4.1 3.2-4.5 GM/DL My Orders Orders - LOMELI,LOUISE L DO Cbc With Automated Diff (06/04/22 09:10) Comprehensive Metabolic Panel (06/04/22 09:10) Magnesium (06/04/22 09:10) Troponin I Edwin (06/04/22 09:10) Ekg Tracing (06/04/22 09:10) Monitor-Rhythm Ecg Trace Only (06/04/22 09:10) Vital Signs/I&O 06/04/22 08:55 Temp 35.7 Pulse 62 Resp 14 B/P (MAP) 162/95 (117) Pulse Ox 96 O2 Delivery Room Air Blood Pressure Mean: 117 Progress Progress Note : Progress Note Patient's diagnostic studies were ordered reviewed and interpreted by me. Patient has no significant changes or findings on his labs. Patient's EKG shows sinus bradycardia with MI 201, ventricular rate 57, QRS 93. 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 Patient blood pressure slightly elevated however he is being treated appropriately with an increase of his metoprolol in addition to his amlodipine. This may also be causing his little bit of his feeling of dizziness with the new medication. He should follow-up with his primary care provider as needed. His physical exam was benign and shows no concerning findings. Patient was stable and discharged home. Initial ECG Impression Date: Jun 04, 2022 Initial ECG Impression Time: 09:20 Initial ECG Rate: 57 Initial ECG Rhythm: S.Mickey Initial ECG Intervals: Normal Comment Patient with what appears to be an old AL. Patient with no acute ST elevation or changes. Departure Impression Primary Impression: HTN (hypertension) Qualified Codes: I10 - Essential (primary) hypertension Disposition: 01 HOME, SELF-CARE Condition: Stable Departure-Patient Inst. Referrals: MILAGRO MASTERSON DO (PCP/Family) Primary Care Physician Patient Instructions: High Blood Pressure ED Add. Discharge Instructions: Please follow-up with your primary care provider in about a week to 10 days to follow-up on your new blood pressure medications. Return to the ER with any concerns. All discharge instructions reviewed with patient and/or family. Voiced understanding. LOUISE LOMELI DO Jun 04, 2022 09:24
[2022-06-04 09:32] LABS: ALBUMIN 4.1 GM/DL (3.2-4.5); CHLORIDE 108 MMOL/L (98-107); POTASSIUM 3.8 MMOL/L (3.6-5.0); SODIUM 141 MMOL/L (135-145)
[2022-06-04 09:34] LABS: CALCIUM 8.9 MG/DL (8.5-10.1)
[2022-06-04 09:35] LABS: GLUCOSE 100 MG/DL (70-105); TOTAL PROTEIN 6.8 GM/DL (6.4-8.2)
[2022-06-04 09:36] LABS: CARBON DIOXIDE 25 MMOL/L (21-32)
[2022-06-04 09:37] LABS: BILIRUBIN,TOTAL 1.1 MG/DL (0.1-1.0)
[2022-06-04 09:38] LABS: ALKALINE PHOSPHATASE 62 U/L (40-136); GFR ESTIMATED 100
[2022-06-04 09:39] LABS: BUN/CREATININE RATIO 19
[2022-06-04 09:41] LABS: ALANINE AMINOTRANSFERASE 49 U/L (0-55)
[2022-06-04 10:15] VITALS: BP 156/90
== END 2022-06-04 10:15 | disposition home or self-care (01) ==
LOC: EDUNIT# 08:45 → ER 08:48
DX: I10 Essential (primary) hypertension (principal); Z79.899 Other long term (current) drug therapy
CPT/HCPCS: 36415; 80053; 83735; 84484; 85025; 93005; 93041

== ENCOUNTER → 2022-06-24 | Outpatient (CLI) | payer MEDICARE, OTHER | LOC: CARD 11:53 | PROVIDERS: ATTEND Internal Medicine Cardiovascular Disease | DX: I51.7 Cardiomegaly (principal); I35.1 Nonrheumatic aortic (valve) insufficiency; I25.10 Atherosclerotic heart disease of native coronary artery without angina pectoris | CPT/HCPCS: 93306 ==

== ENCOUNTER → 2022-07-13 | Outpatient (CLI) | payer MEDICARE, OTHER ==
[~2022-07-13] MED LIST changes: +CATHETER FLUSH 10 ML SYR IVP PRN; +REGADENOSON 0.4 MG/5 ML SYR (LEXISCAN) IV ONE
[2022-07-13 09:17] VITALS: BP 145/80
== END ==
LOC: CARD 07:21
PROVIDERS: ATTEND Nurse Practitioner Family
DX: I25.10 Atherosclerotic heart disease of native coronary artery without angina pectoris (principal)
CPT/HCPCS: 78452; 93017; A9502